=== PATIENT | male | born 1990 | race Caucasian/White ===

== ENCOUNTER 2020-09-23 22:36 | Emergency (ER) | payer BC ==
[~2020-09-23] VITALS: Ht 175.3 cm; Wt 81.8 kg
[2020-09-23 23:02] VITALS: TEMP 97.9
[2020-09-24 00:10] VITALS: BP 131/90; PULSE 56
== END 2020-09-24 00:12 | disposition home or self-care (01) ==
LOC: COL.ER 22:36
DX: S91.111A Laceration without foreign body of right great toe without damage to nail, initial encounter (principal); W25.XXXA Contact with sharp glass, initial encounter; Y92.009 Unspecified place in unspecified non-institutional (private) residence as the place of occurrence of the external cause

== ENCOUNTER → 2020-10-06 | Outpatient (CLI) | payer BC ==
[2020-10-06 10:58] VITALS: BP 143/90; PULSE 54; TEMP 98.2
== END ==
LOC: COL.ER 10:46
DX: Z48.02 Encounter for removal of sutures (principal)